=== PATIENT | male | born 1990 | race African-American/Black ===

== ENCOUNTER 2023-03-19 18:11 | Emergency (ER) | payer OTHER ==
[~2023-03-19] VITALS: Ht 188 cm; Wt 68.0 kg
[2023-03-19 18:31] VITALS: TEMP 97.9; O2SAT 100
[2023-03-19 21:21] VITALS: BP 122/75; PULSE 66; RESP 18
== END 2023-03-19 21:22 | disposition home or self-care (01) ==
LOC: ER 18:11
DX: R21 Rash and other nonspecific skin eruption (principal); J45.909 Unspecified asthma, uncomplicated; Z98.890 Other specified postprocedural states; Z11.3 Encounter for screening for infections with a predominantly sexual mode of transmission
CPT/HCPCS: 86592; 99282; 99283

== ENCOUNTER 2023-05-02 16:24 | Emergency (ER) | payer OTHER ==
[~2023-05-02] VITALS: Ht 188 cm; Wt 68.0 kg
[2023-05-02 16:26] VITALS: PULSE 104
[2023-05-02 16:55] VITALS: BP 110/70; RESP 16; TEMP 98.5; O2SAT 100
[2023-05-02 20:24] LABS: BASOPHILS % 0.8 % (0.0-2.0); EOSINOPHILS % 1.3 % (0.0-5.0); HEMATOCRIT. 43.5 % (42.0-52.0); HEMOGLOBIN. 14.6 g/dL (14.0-18.0); MEAN CORPUSCULAR HEMOGLOBIN 30.7 pg (28.0-32.0); MEAN CORPUSCULAR HGB CONC 33.5 g/dL (31.0-37.0); MEAN CORPUSCULAR VOLUME 91.6 fL (80.0-94.0); MONOCYTES % 6.3 % (2.0-8.0); NEUTROPHILS % 58.6 % (40.0-76.0); PLATELET 187 x1000/uL (130-400); RED BLOOD CELL COUNT 4.75 mill/uL (4.7-6.1); RED CELL DISTRIBUTION WIDTH 12.9 % (11.6-14.6); WHITE BLOOD COUNT 7.1 x1000/uL (4.5-11.0)
[2023-05-02 20:27] LABS: DIFFERENTIAL COMMENT 1
[2023-05-02 20:37] LABS: ALANINE AMINOTRANSFERASE 12 IU/L (10-49); ALBUMIN 4.4 g/dL (3.2-4.8); ASPARTATE AMINOTRANSFERASE 19 IU/L (<34); BILIRUBIN TOTAL 0.8 mg/dL (0.1-1.0); CALCIUM 9.5 mg/dL (8.7-10.4); CARBON DIOXIDE 29 mEq/L (21-32); CHLORIDE 106 mEq/L (98-107); GLUCOSE 83 mg/dL (70-105); PROTEIN TOTAL 6.8 g/dL (6.0-8.3); SODIUM 140 mEq/L (136-145); UREA NITROGEN BLOOD 11 mg/dL (9-23)
[2023-05-02 20:59] LABS: ERYTHROCYTE SEDIMENTATION RATE 2 mm/hr (0-15)
== END 2023-05-02 22:09 | disposition left against medical advice (07) ==
LOC: ER 16:24
DX: R21 Rash and other nonspecific skin eruption (principal); J45.909 Unspecified asthma, uncomplicated; Z98.890 Other specified postprocedural states
CPT/HCPCS: 36415; 80053; 85025; 85651; 86038; 99283